=== PATIENT | female | born 1940 | race Caucasian/White ===

== ENCOUNTER 2024-12-31 11:22 | Emergency (ER) | payer MEDICARE ==
[~2024-12-31] VITALS: Ht 170.2 cm; Wt 81.6 kg
--- NOTE | 2024-12-31 12:50 | EKG ---
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
[2024-12-31 13:02] LABS: INFLUENZA TYPE A Negative For Type A (NEGATIVE); INFLUENZA TYPE B Negative For Type B (NEGATIVE)
[2024-12-31 13:06] LABS: COVID19 (SARS ANTIGEN RAPID) PRESUMPTIVE NEGATIVE (NEGATIVE)
--- NOTE | 2024-12-31 13:25 | ERN ---
ED Note History of Present Illness Stated Complaint: SORE THROAT,MULTIPLE COMPLAINTS Chief Complaint: Flu Symptoms Dictation: 84-year-old female presents to the ED for evaluation of sore throat onset one week ago. Patient reports cough, nasal congestion and ear pain, but denies any chest pain or shortness a breath at this time. Patient was seen couple of days ago and was prescribed a Z-Francisco. Patient's is sick with similar symptoms and states they will be returning home to [place] next week. Allergies: Coded Allergies: Penicillins (Unverified Allergy, Intermediate, 12/31/24) acetaminophen (Unverified Allergy, Intermediate, 12/31/24) estradiol (Unverified Allergy, Intermediate, 12/31/24) oxycodone (Unverified Allergy, Intermediate, 12/31/24) ropinirole (Unverified Allergy, Intermediate, 12/31/24) tramadol (Unverified Allergy, Intermediate, 12/31/24) cefaclor (Unverified Allergy, Unknown, 12/31/24) sulfur dioxide (Unverified Allergy, Unknown, 12/31/24) Home Meds Active Scripts Prednisone (Prednisone) 20 Mg Tablet, 1 TAB PO DAILY for 5 Days, #5 TAB 0 Refills TAKE 1 TAB BY MOUTH THREE TIMES PER DAY X3 DAYS, THEN TAKE 1 TAB BY MOUTH TWICE A DAY X2 DAYS, THEN TAKE 1 TAB BY MOUTH ONCE A DAY X1 DAY. Prov:ZAYRA KEITA MD 12/31/24 Past Medical History Past Medical History: A-Fib, CHF, GERD, High Cholesterol, Hypothyroid Surgical History: Appendectomy, Hysterectomy, Tonsillectomy Review of System Dictation Constitutional: Negative for fever,chills, and weight loss Eyes: Negative for injury, pain,redness, and discharge ENT: Positive for nasal congestion sore throat and ear pain Cardiovascular: Negative for chest pain, palpitations, and edema Respiratory: Positive for cough,Negative for shortness of breath, and wheezing, Abdomen/GI: Negative for abdominal pain, nausea, vomiting, diarrhea, and constipation Back: Negative for injury and pain : Negative for injury, bleeding and discharge MS/Extremity: Negative for injury and deformity Skin: Negative for rash, and discoloration Neuro: Negative for headache, weakness, numbness, tingling, and seizure Psych: Negative for suicide ideation, homicidal ideation, and hallucinations Initial Vital Sign VS Vital Signs Date Time Temp Pulse Resp B/P (MAP) Pulse Ox O2 Delivery O2 Flow Rate FiO2 12/31/24 12:11 97.5 60 20 132/69 99 Room Air 0 12/31/24 13:43 21 Physical Exam Dictation General: awake, alert, NAD Head/Face: Normocephalic, atraumatic Eyes: PERRL, EOMI, vision at baseline ENT: oral cavity clear, TMs clear, no signs of infection Neck: Trachea midline, supple, no nuchal rigidity Cardiovascular: RRR, normal S1/S2, No MRGs, no JVD Respiratory: CTAB, no respiratory distress, No rales or wheezes Abdomen: Soft, non-tender, non-distended, normal bowel sounds, no guarding or rebound. Skin: Warm, dry, normal turgor, no rash MS/Extremity: Pulses equal, no cyanosis, neurovascular intact, FROM Neuro: COAx4, GCS 15, strength 5/5, CN 2-12 intact, normal cerebellar exam, normal gait, Psych: Normal behavior, mood, and affect normal Results (Laboratory/Radiology) Laboratory/Radiology Laboratory Tests Test 12/31/24 12:24 Influenza Type A Antigen Negative For Type A Influenza Type B Antigen Negative For Type B SARS-CoV-2 Antigen (Rapid) PRESUMPTIVE NEGATIVE Labs Reviewed?: Yes ED Course ED Course Orders Procedure Category Date Status Time Influenza Type A & B, LAB 12/31/24 Complete Rapid 12:30 12 Lead Ekg Tracing- EKG 12/31/24 Complete Technical 12:30 Chest 1vw RAD 12/31/24 Resulted 12:30 Covid19 (Sars Antigen LAB 12/31/24 Complete Rapid) 12:30 Vital Signs Date Time Temp Pulse Resp B/P (MAP) Pulse Ox O2 Delivery O2 Flow Rate FiO2 12/31/24 13:43 98.1 62 16 130/68 98 Room Air* 0 21 12/31/24 12:11 97.5 60 20 132/69 99 Room Air 0 Medical Decision Making MDM MDM: Differential diagnosis: Influenza, viral syndrome, URI Risk of complication and/or morbidity or mortality of patient management: None Medications-Per medication reconciliation Need for hospitalization: Patient does not meet criteria for hospitalization. Need for emergency major/minor surgery: No There are no social concerns with this patient. Prescription drug management Prescriptions will include symptomatic care I independently interpreted the test that were performed, results were reviewed by me and considered findings on radiology if ordered. DX & DISP Disposition: Discharge Departure Impression: Primary Impression: Acute URI Condition: Stable Scripts Prednisone (Prednisone) 20 Mg Tablet 1 TAB PO DAILY for 5 Days, #5 TAB 0 Refills TAKE 1 TAB BY MOUTH THREE TIMES PER DAY X3 DAYS, THEN TAKE 1 TAB BY MOUTH TWICE A DAY X2 DAYS, THEN TAKE 1 TAB BY MOUTH ONCE A DAY X1 DAY. Prov: ZAYRA KEITA MD 12/31/24 Referrals: SELF,REFERRAL (PCP) ZAYRA KEITA MD Dec 31, 2024 13:25
[2024-12-31 13:43] VITALS: BP 130/68; PULSE 62; RESP 16; TEMP 98.1; O2SAT 98
--- NOTE | 2024-12-31 14:08 | HMCIMG ---
CHEST 1VW REASON: cough COMPARISON: None. FINDINGS: Single view of the chest was obtained. Lungs are clear. Heart size is normal. There is no pulmonary vascular congestion. Mediastinum and bony thorax appear unremarkable. IMPRESSION: 1. Normal single view chest x-ray.
[2024-12-31] MEDS ORDERED: PRED20TA3 PO (14:23)
--- NOTE | 2024-12-31 14:29 | NUR ---
UNABLE TO DEPART PT AT THIS TIME DUE TO REG PROCESS
== END 2024-12-31 14:29 | disposition home or self-care (01) ==
LOC: EDH 11:22
DX: J06.9 Acute upper respiratory infection, unspecified (principal); E03.9 Hypothyroidism, unspecified; E78.00 Pure hypercholesterolemia, unspecified; I50.9 Heart failure, unspecified; K21.9 Gastro-esophageal reflux disease without esophagitis; Z79.52 Long term (current) use of systemic steroids; Z88.0 Allergy status to penicillin; Z88.1 Allergy status to other antibiotic agents; Z88.5 Allergy status to narcotic agent; Z90.49 Acquired absence of other specified parts of digestive tract; Z90.710 Acquired absence of both cervix and uterus; Z20.822 Contact with and (suspected) exposure to COVID-19
CPT/HCPCS: 71045; 87426; 87804; 93005; 99285